=== PATIENT | male | born 1965 | race Caucasian/White ===

== ENCOUNTER 2019-06-14 10:56 | Outpatient (CLI) | payer BC, SELFPAY ==
--- NOTE | ~2019-06-14 | US_ITS ---
EXAMINATION: US soft tissue head and neck DATE: 06/14/2019 11:31 INDICATION: Right posterior scalp mass. TECHNIQUE: Multiple grayscale and Doppler ultrasound images of the head and neck were obtained. COMPARISON: None FINDINGS: There is no abnormal mass or lymphadenopathy in the patient's area of concern in right post erior scalp. IMPRESSION: 1. No abnormal mass or lymphadenopathy in the patient's area concern in right posterior scalp. Reviewed, dictated and finalized at location A. F OF VITAL STATISTICS IMPRESSION: 1. No abnormal mass or lymphadenopathy in the patient's area concern in right p osterior scalp.
== END 2019-06-14 10:57 | disposition home or self-care (01) ==
PROVIDERS: PCP Family Medicine; Visit Provider Family Medicine
DX: R22.0 Localized swelling, mass and lump, head (principal)
CPT/HCPCS: 76536

== ENCOUNTER 2019-06-17 01:05 | Day surgery (SDC) | payer BC, SELFPAY ==
[2019-06-12 12:32] VITALS: BMI 29.2
[2019-06-17 07:19] VITALS: BMI 29.1
[2019-06-17] MEDS: LACTATED RINGERS 1,000 ML 150 ML IV CONT (07:41)
--- NOTE | 2019-06-17 07:43 | P.CONGI_ITS ---
Assessment and Plan Additional Plan This is a 53-year-old white male patient seen in evaluation at the request of Dr. Rajiv Nguyen DO. Patient presents for neoplasia screening. His current weight appetite bowel movements are normal. He denies any blood in his stools. He denies abdominal pain. His bowel habits are regular. Family history is noncontributory. Past medical history is significant for elevated cholesterol. Current medications include atorvastatin. Sumatriptan. No known drug allergies. Physical exam reveals patient to be alert. Vital signs stable. HEENT exam unremarkable. He is anicteric. Lungs are clear to auscultation and percussion. Heart is without murmur or extra sounds. Abdominal exam bowel sounds are present soft nontender with no hepatosplenomegaly. Digital external rectal exam is normal. Impression 1. Neoplasia screening. Plan because of his age. Plan is to proceed with colonoscopy. GI Consult Note Consult date/time: 06/17/19 07:43 HPI: Mikhail Blair is a 53 year old male [facility] Social History Social History Smoking status: Never smoker Alcohol intake: never Gender identity (if verbalized by the patient): Male Meds Home Medications and Allergies Home Medications Medication Instructions Recorded Confirmed Type atorvastatin 10 mg tablet 10 mg PO DAILY 05/20/19 06/17/19 History sumatriptan succinate 100 mg PO PRN PRN 06/12/19 06/12/19 History Allergies Allergy/AdvReac Type Severity Reaction Status Date / Time No Known Allergies Allergy Mild Verified 06/17/19 07:15
--- NOTE | 2019-06-17 08:09 | WPDANESEPPF ---
Anes - Initial Pre Proc Eval Procedure: Operation Date: 06/17/19 08:30 Proposed Procedures p Screening Colonoscopy - Mikhail Cates MD Date/Time: 06/17/19 08:09 Surgeon: Mikhail Cates MD Pre Op Diagnosis: Neoplasm Screening Patient Data Age: 53 Gender: M Height: 6 ft Weight: 97.5 kg Allergies Allergy/AdvReac Type Severity Reaction Status Date / Time No Known Allergies Allergy Mild Verified 06/17/19 07:15 Home Medications Medication Instructions Recorded Confirmed Type atorvastatin 10 mg tablet 10 mg PO DAILY 05/20/19 06/17/19 History sumatriptan succinate 100 mg PO PRN PRN 06/12/19 06/12/19 History Patient hx anesthesia problems: none Family hx anesthesia problems: none [facility] Past Medical History Medical History (Updated 06/17/19 @ 08:09 by Bentley Flores MD) Hyperlipidemia Social History Social History Smoking status: Never smoker Alcohol intake: never Gender identity (if verbalized by the patient): Male Anes - Eval Final PreProcedure Day of Procedure 06/17/19 08:09 Patient weight: overweight Heart: regular rate and rhythm Lungs: clear to auscultation Airway: Mallampati scale class II Neurological: alert and oriented Last oral intake: >/= 8 hours ASA classification: II Emergent: no Anesthetic plan: proceed Anesthesia type and monitoring: general GIVS and standard monitoring Informed Consent: The patient's anesthetic plan and its attendant risks and benefits were discussed with the patient/family/POA. Questions were solicited and answers provided to the satisfaction of the patient/family/POA.
[2019-06-17 08:54] VITALS: BP 109/73; PULSE 64; RESP 16; O2SAT 97
[2019-06-17 09:04] VITALS: BP 109/73; PULSE 60; RESP 15; O2SAT 96
[2019-06-17 09:31] VITALS: BP 113/73; PULSE 55; RESP 16; O2SAT 100
== END 2019-06-17 10:03 | disposition home or self-care (01) ==
PROVIDERS: PCP Family Medicine; Visit Provider Internal Medicine Gastroenterology
PROC: 0DJD8ZZ Inspection of Lower Intestinal Tract, Via Natural or Artificial Opening Endoscopic (ICD-10-PCS; CPT 45378; principal; 2019-06-17 08:30)
DX: Z12.11 Encounter for screening for malignant neoplasm of colon (principal); K63.5 Polyp of colon; K64.8 Other hemorrhoids; E78.5 Hyperlipidemia, unspecified
CPT/HCPCS: 45385; 88305; J2704; J7120

== ENCOUNTER 2021-03-13 09:58 | Emergency (ER) | payer BC, SELFPAY ==
--- NOTE | ~2021-03-13 | XR_ITS ---
EXAMINATION: XR foot RT min 3V EXAM DATE: 03/13/2021 10:20 INDICATION: Dropped Heavy Object On Top Of Foot,Midmetatarsal Pain. TECHNIQUE: Right foot dorsoplantar, lateral and oblique projections obtained and reviewed. There is no prior study for comparison. FINDINGS: There is acute closed posttraumatic fracture at the base of the right 1st metatarsal bone e xtending into the tarsometatarsal joint. There is also a transverse component extending across the bev ne. There is about 3 mm of displacement. No appreciable angulation. 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 IMPRESSION: Acute comminuted right 1st metatarsal base intra-articular fracture. Reviewed, dictated and finalized at location A. IMPRESSION: Acute comminuted right 1st metatarsal base intra-articular fractur e.
[2021-03-13 10:05] VITALS: BP 140/90; PULSE 60; RESP 18; TEMP 37; O2SAT 100
--- NOTE | 2021-03-13 10:05 | ED.LOWEXIN ---
HPI - Extremity Injury (Lower) General Chief Complaint: Extremity Injury, Lower Stated Complaint: rt foot inj Time Seen by Provider: 03/13/21 10:11 Source: patient and RN notes reviewed Mode of arrival: ambulatory Limitations: no limitations History of Present Illness HPI Narrative: Mikhail is a 55-year-old male patient who ambulated into [facility] on crutches. . Patient states he dropped 180 pound jukebox on the top of his right foot yesterday. Patient rates pain 3-4. Patient states he can move all of his toes. Patient states feeling is intact. Patient states has been using Tylenol for pain last dose at 6 AM. Related Data Home Medications Medication Instructions Recorded Confirmed atorvastatin 03/13/21 03/13/21 sumatriptan succinate 100 mg PO DAILY PRN 03/13/21 03/13/21 Allergies Allergy/AdvReac Type Severity Reaction Status Date / Time No Known Allergies Allergy Mild Verified 03/13/21 10:15 Review of Systems Review of Systems: CONSTITUTIONAL: Denies body aches, fever, chills, or sweats. EYES: Denies visual changes, redness, or discharge. ENT: Denies rhinorrhea, congestion, sore throat, or otalgia. CARDIOVASCULAR: Denies chest pain, palpitations, or edema. RESPIRATORY: Denies cough or dyspnea. GASTROINTESTINAL: Denies abdominal pain, nausea, vomiting, or diarrhea. GENITOURINARY: Denies dysuria or hematuria. SKIN: Denies rash, itching, or wounds. MUSCULOSKELETAL: + right foot pain and swelling, + abrasion NEUROLOGIC: Denies headache, numbness, tingling, or weakness. PSYCH: Denies depression or anxiety. All systems reviewed & are unremarkable except as noted in HPI and below PMFSH Past Medical History Medical History Hyperlipidemia Social History Social History Smoking status: Never smoker Alcohol intake: never Gender identity (if verbalized by the patient): Male Comments At time of signature, I have reviewed and agree with nursing past medical, surgical, social and family history unless otherwise noted. Please see nursing chart for further information. There is no relevant family history pertinent to the presenting complaint Exam Narrative: GENERAL: Well-appearing, well-nourished, and in no acute distress. HEAD: Normocephalic, atraumatic. EYES: EOMI. No redness or drainage. Conjunctivae normal. ENT: Mucous membranes pink and moist. Nares clear. No rhinorrhea. NECK: Normal AROM. Supple. CHEST: No respiratory distress. MUSCULOSKELETAL: No bony tenderness. EXTREMITIES: Normal range of motion. minimal edema over 1/2 metatarsal, quarter size abrasion to right 3/4 metatarsal, SKIN: Warm, dry, no rash. Capillary refill normal. Normal skin turgor. abrasion to right foot over metatarsal 3/4 , minimal erythema to skin, foot pink warm and dry, good capillary refill, distal sensation and movement intact. NEURO: No focal deficits. Alert and oriented x3. Gait steady. PSYCH: Normal affect. No signs of depression or anxiety. Course Vital Signs Vital signs: Vital Signs Temperature 37.0 C 03/13/21 10:05 Pulse Rate 60 03/13/21 10:05 Respiratory Rate 18 03/13/21 10:05 Blood Pressure 140/90 03/13/21 10:05 Pulse Oximetry 100 03/13/21 10:05 Temperature 37.0 C 03/13/21 10:05 Pulse Rate 60 03/13/21 10:05 Respiratory Rate 18 03/13/21 10:05 Blood Pressure 140/90 03/13/21 10:05 Pulse Oximetry 100 03/13/21 10:05 Reviewed. Pt has been instructed to follow up with his PCP regarding his elevated blood pressure today. MDM - Extremity Injury (Lower) MDM Narrative Medical decision making narrative: Acute comminuted right 1st metatarsal base intra-articular fracture. Differential Diagnosis Differential diagnosis: Likely ankle sprain and strain, fracture of toe and other (foot fracture, ) Medical Records Attestation: I reviewed the patient's medical records.
== END 2021-03-13 10:55 | disposition home or self-care (01) ==
PROVIDERS: Emergency Provider Nurse Practitioner Family; PCP Family Medicine
DX: S92.314A Nondisplaced fracture of first metatarsal bone, right foot, initial encounter for closed fracture (principal); W20.8XXA Other cause of strike by thrown, projected or falling object, initial encounter; E78.5 Hyperlipidemia, unspecified
CPT/HCPCS: 73630; 99214; G0463

== ENCOUNTER 2023-07-13 11:32 | Outpatient (CLI) | payer BC, SELFPAY | END 2023-07-13 11:33 | disposition home or self-care (01) | LOC: ANHGOSHLAB 11:34 | PROVIDERS: PCP Family Medicine; Visit Provider Family Medicine | DX: Z12.5 Encounter for screening for malignant neoplasm of prostate (principal) | CPT/HCPCS: 36415; 84153; G0103 ==

== ENCOUNTER 2024-10-25 00:12 | Day surgery (SDC) | payer OTHER, SELFPAY ==
[2024-10-16 09:31] VITALS: BMI 32.5
[2024-10-25 09:20] VITALS: BP 132/93; PULSE 54; RESP 18; TEMP 36.8; O2SAT 99
[2024-10-25] MEDS: LACTATED RINGERS 1,000 ML 150 ML IV CONT (09:28)
--- NOTE | 2024-10-25 09:48 | P.PNAN_ITS ---
Anes - Initial Pre Proc Eval Procedure: Operation Date: 10/25/24 10:30 Proposed Procedures p Screening Colonoscopy - Robert Betancourt MD Date/Time: 10/25/24 09:48 Surgeon: Robert Bteancourt MD Pre Op Diagnosis: Hx of polyps Patient Data Age: 58 Gender: M Height: 1.83 m Weight: 107.3 kg Last Vital Signs Temp 36.8 C 10/25/24 09:20 Pulse 54 L 10/25/24 09:20 Resp 18 10/25/24 09:20 BP 132/93 H 10/25/24 09:20 Pulse Ox 99 10/25/24 09:20 O2 Del Method Room Air 10/25/24 09:20 Allergies Allergy/AdvReac Type Severity Reaction Status Date / Time No Known Allergies Allergy Mild Verified 10/25/24 09:19 Home Medications ?Medication ?Instructions ?Recorded ?Confirmed ?Type npsdrziommqf-oyw-cralw acid-vit 1 tablet PO DAILY 03/25/21 10/25/24 History K-lycop 400 mcg-20 mcg-370 mcg tablet (Men's 50 Plus Multivitamin) ezetimibe 10 mg tablet 10 mg PO DAILY #90 tabs 06/27/24 10/25/24 Rx levothyroxine 25 mcg tablet 25 mcg PO DAILY #90 tabs 06/27/24 10/25/24 Rx (Levoxyl) rimegepant 75 mg disintegrating See Rx Instructions .Route 06/27/24 10/16/24 Rx tablet (Nurtec ODT) .COMPLEX #12 tabs Patient hx anesthesia problems: none Family hx anesthesia problems: none Results Review: All pre-operative results and documents have been reviewed as part of the pre- operative evaluation. [facility] Past Medical History Medical History Fracture of foot Hyperlipidemia Social History Social History Social History: Caffeine-coffee Smoking status: Never smoker Alcohol intake: never Substance use: never Substance use type: does not use Do You Feel Safe in your Home?: Yes Lack of Transportation: No Lack of Food: Never True Current Housing: I Have Housing Concerned About Future Housing: No Difficulty Paying Gas/Electric Bills: No Difficulty Paying for Meds: No Currently Unemployed: No Difficulty w/ Childcare or Family Care: No Living arrangements: with family Gender identity (if verbalized by the patient): Male Spiritual care concerns: No Anes - Eval Final PreProcedure Day of Procedure 10/25/24 09:48 Patient weight: obese Heart: regular rate and rhythm Lungs: clear to auscultation Airway: Mallampati scale class II Neurological: alert and oriented Last oral intake: >/= 8 hours ASA classification: III Emergent: no Anesthetic plan: proceed Anesthesia type and monitoring: general GIVS and standard monitoring Results Review: All pre-operative results and documents have been reviewed as part of the pre- operative evaluation. Informed Consent: The patient's anesthetic plan and its attendant risks and benefits were discussed with the patient/family/POA. Questions were solicited and answers provided to the satisfaction of the patient/family/POA.
--- NOTE | 2024-10-25 09:52 | P.HP_ITS ---
H&P: HPI History of Present Illness Date/Time: 10/25/24 09:52 Chief Complaint: History of colon polyps Narrative: The patient has a history of colonic polyps, the last colonoscopy was approximately 5 years Review of Systems Review of Systems: All systems reviewed & are unremarkable except as noted in HPI and below PMFSH Past Medical History Medical History Fracture of foot Hyperlipidemia Social History Social History Social History: Caffeine-coffee Smoking status: Never smoker Alcohol intake: never Substance use: never Substance use type: does not use Do You Feel Safe in your Home?: Yes Lack of Transportation: No Lack of Food: Never True Current Housing: I Have Housing Concerned About Future Housing: No Difficulty Paying Gas/Electric Bills: No Difficulty Paying for Meds: No Currently Unemployed: No Difficulty w/ Childcare or Family Care: No Living arrangements: with family Gender identity (if verbalized by the patient): Male Spiritual care concerns: No Meds Home Medications and Allergies Home Medications ?Medication ?Instructions ?Recorded ?Confirmed ?Type kbreqblkqidd-oop-pnrix acid-vit 1 tablet PO DAILY 03/25/21 10/25/24 History K-lycop 400 mcg-20 mcg-370 mcg tablet (Men's 50 Plus Multivitamin) ezetimibe 10 mg tablet 10 mg PO DAILY #90 tabs 06/27/24 10/25/24 Rx levothyroxine 25 mcg tablet 25 mcg PO DAILY #90 tabs 06/27/24 10/25/24 Rx (Levoxyl) rimegepant 75 mg disintegrating See Rx Instructions .Route 06/27/24 10/16/24 Rx tablet (Nurtec ODT) .COMPLEX #12 tabs Allergies Allergy/AdvReac Type Severity Reaction Status Date / Time No Known Allergies Allergy Mild Verified 10/25/24 09:19 Vital Signs Vital Signs - 24 hr 10/25/24 09:20 Temperature 98.2 F Pulse Rate 54 L Respiratory Rate 18 Blood Pressure 132/93 H Pulse Oximetry 99 Oxygen Delivery Room Air Exam 2 Const: General: cooperative and healthy appearing Resp: Effort & Inspection: normal respiratory effort and able to speak in complete sentences Auscultation: clear to auscultation bilaterally Cardio: Rate: regular rate Rhythm: regular rhythm GI: Inspection: normal to inspection GI Palp: No No hepatosplenomegaly present Auscultation: normal bowel sounds Rectal Exam: deferred Skin: General skin exam: normal color Psych: Appearance: grossly normal Mental Status: mental status grossly normal Assessment and Plan Assessment and plan (1) Colonic polyp: Code(s): K63.5 - Polyp of colon Status: Acute Assessment and Plan: The patient is deemed a good candidate for the procedure. Consent signed. Will proceed.
[2024-10-25 10:21] VITALS: BP 141/90; PULSE 65; RESP 15; O2SAT 98
[2024-10-25 10:31] VITALS: BP 128/92; PULSE 61; RESP 16; O2SAT 99
[2024-10-25 10:41] VITALS: BP 146/95; PULSE 56; RESP 14; O2SAT 99
== END 2024-10-25 10:50 | disposition home or self-care (01) ==
PROVIDERS: PCP Family Medicine; Referring Provider Family Medicine; Visit Provider Internal Medicine Gastroenterology
PROC: 0DJD8ZZ Inspection of Lower Intestinal Tract, Via Natural or Artificial Opening Endoscopic (ICD-10-PCS; CPT 45378; principal; 2024-10-25 10:30)
DX: Z12.11 Encounter for screening for malignant neoplasm of colon (principal); K57.30 Diverticulosis of large intestine without perforation or abscess without bleeding; E78.5 Hyperlipidemia, unspecified; E66.9 Obesity, unspecified; Z68.32 Body mass index [BMI] 32.0-32.9, adult; Z86.0100 Personal history of colon polyps, unspecified
CPT/HCPCS: 45378; J2003; J2704; J7120